=== PATIENT | female | born 1995 | race Caucasian/White ===

== ENCOUNTER 2018-04-22 05:56 | Day surgery (SDC) | payer BC ==
[2018-04-22] MEDS ORDERED: MIDAZOLAM 1 MG/ML 2 ML INJ ×2 (07:55)
[2018-04-22] MEDS ORDERED: FENTAnyl 50 MCG/ML VIAL (07:56)
== END 2018-04-22 12:57 | disposition home or self-care (01) ==
LOC: GIL 05:56
DX: K29.50 Unspecified chronic gastritis without bleeding (principal); K21.9 Gastro-esophageal reflux disease without esophagitis
CPT/HCPCS: 43239; 88305; 88312